=== PATIENT | female | born 1985 | race Caucasian/White ===

== ENCOUNTER 2018-04-01 09:42 | Outpatient (CLI) | payer BC | END 2018-04-01 09:43 | disposition home or self-care (01) | LOC: BICMAMMO 09:42 | PROVIDERS: ATTEND Internal Medicine Hematology & Oncology | DX: C81.4 Lymphocyte-rich Hodgkin lymphoma (principal); N64.89 Other specified disorders of breast; Z85.3 Personal history of malignant neoplasm of breast | CPT/HCPCS: 77066; G0279 ==

== ENCOUNTER 2018-12-09 07:22 | Outpatient (CLI) | payer OTHER ==
--- NOTE | 2018-12-09 09:19 | CT ---
FContrast-enhanced CT images of chest, abdomen and pelvis. HISTORY: Hodgkin's lymphoma. Comparison made to previous CT of the abdomen from 02/27/2008. This is the patient's last previous CT on [facility] P[facility] system. There is a mild anterior superior soft tissue density compatible with a some lymph nodes maximum diam eter measuring 1.7 x 1.3 cm. Some of this mild lymphadenopathy extends inferiorly into the more infer ior aspect of the anterior mediastinum. No evidence of lung parenchymal lesions seen. No evidence of axillary lymphadenopathy seen. No eviden ce of hilar lymphadenopathy seen. CT abdomen and pelvis: The liver, spleen, gallbladder, pancreas, adrenal glands and kidneys are unrem arkable. No significant evidence of para-aortic lymphadenopathy seen. No evidence of mesenteric lymphadenopathy seen. No evidence of iliac lymphadenopathy seen. Mildly enlarged inguinal lymph nodes are present largest in the left inguinal region measuring approx imately 10 x 11 mm. IMPRESSION: Superior mediastinal and inguinal lymph node enlargement as described above.
[2018-12-09] MEDS ORDERED: ISOVUE-370 76%-LOCM 1 ML ONE (09:20)
== END 2018-12-09 07:23 | disposition home or self-care (01) ==
LOC: BICCT 07:22
PROVIDERS: ATTEND Internal Medicine Hematology & Oncology
DX: C81.4 Lymphocyte-rich Hodgkin lymphoma (principal); R59.0 Localized enlarged lymph nodes
CPT/HCPCS: 71260; 74177; Q9966